=== PATIENT | male | born 1990 | race Caucasian/White ===

== ENCOUNTER 2016-05-20 14:14 | Emergency (ER) | payer SELFPAY ==
[2016-05-20 16:10] VITALS: BMI 28.1
[2016-05-20] MEDS ORDERED: DiphenhydrAMINE 50 mg/ml Inj IVP STA ×2 (16:10→16:44)
[2016-05-20] MEDS ORDERED: Sodium Chloride 0.9% 1,000 ML IV STA (16:10)
[2016-05-20 16:13] VITALS: PULSE 68; RESP 18; O2SAT 99
[2016-05-20] MEDS ORDERED: DiphenhydrAMINE 50 mg/ml Inj ONE (16:21)
--- NOTE | 2016-05-20 16:34 | ED PDOC ---
HPI: Headache Time Seen by Provider: 05/20/16 15:44 Chief Complaint (Nursing): Headache Chief Complaint (Provider): Headache History Per: Patient History/Exam Limitations: no limitations Onset/Duration Of Symptoms: Days Current Symptoms Are (Timing): Still Present Severity: Moderate Quality: "Pain" Preceeding Symptoms: None Associated Symptoms: Nausea, Vomiting Additional Complaint(s): Patient is a 25 year old male who presents to ED for headache that began this morning. Pain is described as bi-parietal with nausea and 1 episode of vomiting. Patient states that vomiting occurred shortly after taking his Immitrex, concerned about how the headache will resolve now, prompted ED visit. Patient reports similar headache last month, evaluated in [facility] ED with blood work. Patient was discharged on Immitrex and instructed to return for a possible CT-head if headache returns. Patient denies head injury, fever, diarrhea, abdominal pain, light sensitivity,vision changes or chest pain. Past Medical History Reviewed: Historical Data, Nursing Documentation, Vital Signs Vital Signs: Last Vital Signs Temp 97.6 F 05/20/16 16:08 Pulse 68 05/20/16 16:08 Resp 18 05/20/16 16:08 BP 111/60 05/20/16 16:08 Pulse Ox 99 05/20/16 16:08 - Medical History PMH: No Chronic Diseases - Surgical History Surgical History: No Surg Hx - Family History Family History: States: Unknown Family Hx - Living Arrangements Living Arrangements: With Family - Home Medications Home Medications: Ambulatory Orders Medication Instructions Recorded Saccharomyces Boulardi [Florastor] 250 mg PO BID #20 cap 07/13/14 Metoclopramide [Reglan] 10 mg PO Q8 PRN #15 tab 05/20/16 Naproxen [Naprosyn] 500 mg PO BID PRN #30 tab 05/20/16 - Allergies Allergies/Adverse Reactions: Allergies Allergy/AdvReac Type Severity Reaction Status Date / Time No Known Allergies Allergy Verified 10/11/15 19:53 Review of Systems ROS Statement: Except As Marked, All Systems Reviewed And Found Negative Constitutional: Negative for: Fever, Weakness Eyes: Negative for: Vision Change Cardiovascular: Negative for: Chest Pain, Palpitations Gastrointestinal: Positive for: Nausea, Vomiting. Negative for: Abdominal Pain , Diarrhea Musculoskeletal: Negative for: Neck Pain, Back Pain Skin: Negative for: Rash Neurological: Positive for: Headache. Negative for: Weakness, Numbness, Dizziness Physical Exam - Reviewed Vital Signs Reviewed: Yes - Physical Exam Appears: Positive for: Non-toxic, Uncomfortable Head Exam: Positive for: ATRAUMATIC, NORMAL INSPECTION Skin: Positive for: Normal Color, Warm Eye Exam: Positive for: Normal appearance, EOMI, PERRL Neck: Positive for: Normal, Painless ROM Cardiovascular/Chest: Positive for: Regular Rate, Rhythm. Negative for: Murmur Respiratory: Positive for: Normal Breath Sounds. Negative for: Respiratory Distress Gastrointestinal/Abdominal: Positive for: Normal Exam. Negative for: Tenderness Extremity: Positive for: Normal ROM. Negative for: Pedal Edema Neurologic/Psych: Positive for: Alert, Oriented. Negative for: Motor/Sensory Deficits - Laboratory Results Result Diagrams: 05/20/16 16:40 05/20/16 16:40 - ECG O2 Sat by Pulse Oximetry: 99 (RA) Pulse Ox Interpretation: Normal - Progress ED Course And Treament: CT head w/o contrast: negative. On re-evaluation, pt. reports complete relief of headache. Denies abdominal pain , fever, neck pain/stiffness. Abd soft and non-tender to deep palpation. Negative psoas and obturator sign. Repeat neuro exam is non-focal. Neck remains supple. Medical Decision Making Medical Decision Making: Time: 1605 Initial Impression: Headache Initial Plan: -- CT-head -- CMP -- CBC -- NSG, Reglan and Benadryl Scribe Attestation: Documented by Debi Sibley, acting as a scribe for Darien Hoang PA-C. Provider Scribe Attestation: All medical record entries made by the Scribe were at my direction and personally dictated by me. I have reviewed the chart and agree that the record accurately reflects my personal performance of the history, physical exam, medical decision making, and the department course for this patient. I have also personally directed, reviewed, and agree with the discharge instructions and disposition. Disposition - Clinical Impression Clinical Impression: Acute headache, Leukocytosis - Patient ED Disposition Is Patient to be Admitted: No - Disposition Referrals: Pedro Montejo MD [Medical Doctor] - Disposition: Routine/Home Disposition Time: 18:35 Condition: STABLE Prescriptions: Naproxen [Naprosyn] 500 mg PO BID PRN #30 tab PRN Reason: Pain Metoclopramide [Reglan] 10 mg PO Q8 PRN #15 tab PRN Reason: Other Instructions: Acute Headache (ED), Leukocytosis (ED) Print Language: IRANIAN
[2016-05-20 17:47] LABS: BASO % 0.3 % (0.0-2.0); EOS % 0.2 % (0.0-4.0); HEMATOCRIT 43.4 % (35.0-51.0); LYMPH # 1.3 K/uL (1.0-4.3); LYMPH % 9.2 % (20.0-40.0); MEAN CELL VOLUME 88.8 fl (80.0-94.0); MEAN CORPUSCULAR HEMOGLOBIN 30.8 pg (27.0-31.0); MEAN CORPUSCULAR HGB CONC 34.7 g/dL (33.0-37.0); MEAN PLATELET VOLUME 9.2 fl (7.2-11.7); MONO # 0.6 K/uL (0.0-0.8); MONO % 4.1 % (0.0-10.0); NEUT # 12.3 K/uL (1.8-7.0); NEUT % 86.2 % (50.0-75.0); NRBC % 0.1 % (0.0-0.0); PLATELET COUNT 258 K/uL (130-400); RED CELL DISTRIBUTION WIDTH 13.2 % (11.5-14.5); WHITE BLOOD COUNT 14.3 K/uL (4.8-10.8)
--- NOTE | 2016-05-20 17:48 | CT ---
PROCEDURE: CT HEAD WITHOUT CONTRAST. HISTORY: headache COMPARISON: None available. TECHNIQUE: Axial computed tomography images were obtained through the head/brain without intravenous contrast. Radiation dose: Total exam DLP = 838.51 mGy-cm. FINDINGS: HEMORRHAGE: No intracranial hemorrhage. BRAIN: No mass effect or edema. The hickman-white matter differentiation appears intact. Please note that MRI with diffusion imaging is more sensitive in the detection of acute ischemic event. VENTRICLES: No hydrocephalus. CALVARIUM: Unremarkable. PARANASAL SINUSES: Unremarkable as visualized. No significant inflammatory changes. MASTOID AIR CELLS: Unremarkable as visualized. No inflammatory changes. OTHER FINDINGS: None. IMPRESSION: No acute intracranial pathology identified.
[2016-05-20 18:26] LABS: ALB/GLOB RATIO 1.4 (1.0-2.1); ALKALINE PHOSPHATASE 48 U/L (38-126); ALT/SGPT 41 U/L (21-72); AST/SGOT 33 U/L (17-59); BILIRUBIN,TOTAL 0.5 mg/dl (0.2-1.3); BLOOD UREA NITROGEN 13 mg/dl (9-20); CALCIUM 9.3 mg/dL (8.4-10.2); CARBON DIOXIDE 27 mmol/L (22-30); CHLORIDE 99 mmol/L (98-107); GFR AFRICAN-AMERICAN > 60; GLUCOSE,RANDOM 129 mg/dL (75-110); POTASSIUM 3.5 MMOL/L (3.6-5.0); SODIUM 136 mmol/l (132-148); TOTAL PROTEIN 8.1 G/DL (6.3-8.2)
[2016-05-20 19:07] LABS: NEUTROPHIL 85 % (42-75); TOTAL CELLS COUNTED 100
[2016-05-20 19:46] VITALS: BP 112/70; TEMP 97.8
== END 2016-05-20 19:46 | disposition home or self-care (01) ==
LOC: H.ER 14:14
DX: R51 Headache (principal); D72.829 Elevated white blood cell count, unspecified
CPT/HCPCS: 70450; 80053; 85025; 96374; 96375; 99283; J1200; J2765; J7040